=== PATIENT | female | born 1975 | race Caucasian/White ===

== ENCOUNTER 2022-05-03 08:41 | Emergency (ER) | payer OTHER, BC ==
[~2022-05-03] VITALS: Ht 175 cm; Wt 81.6 kg
[2022-05-03] MEDS ORDERED: ORPHENADRINE 60 MG/2 ML (NORFLEX) AMP (ED ONLY) IM STA (09:07)
[2022-05-03] MEDS ORDERED: KETOROLAC 60 MG/2 ML VIAL IM STA (09:07)
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
--- NOTE | 2022-05-03 09:32 | Diagnostic Imaging Report ---
PROCEDURE: CT head without contrast. TECHNIQUE: Multiple contiguous axial images were obtained through the brain without the use of intravenous contrast. Auto Exposure Controls were utilized during the CT exam to meet ALARA standards for radiation dose reduction. INDICATION: Fall striking the head. Nausea. COMPARISON: No priors. There is no intracerebral hemorrhage and there is no abnormal extra-axial fluid collection. No hydrocephalus, mass or mass effect. No evidence for elevated pressures. There is no sulcal effacement. The graf-white matter differentiations are maintained. Mastoid air cells and middle ear cavities clear. The paranasal sinuses, orbits and calvarium appeared normal. IMPRESSION: Normal CT head. Dictated by: Dictated on workstation # [id number]
[2022-05-03] MEDS ORDERED: CYCL10TA25 PO (11:00)
[2022-05-03 11:11] VITALS: BP 145/87
== END 2022-05-03 11:11 | disposition home or self-care (01) ==
LOC: EDUNIT# 08:41 → ER 08:44
DX: S06.0X0A Concussion without loss of consciousness, initial encounter (principal); S13.9XXA Sprain of joints and ligaments of unspecified parts of neck, initial encounter; M62.830 Muscle spasm of back; W22.8XXA Striking against or struck by other objects, initial encounter
CPT/HCPCS: 70450